=== PATIENT | male | born 1990 | race American Indian/Alaskan Native ===

== ENCOUNTER 2018-07-21 22:56 | Emergency (ER) | payer OTHER ==
[~2018-07-21] VITALS: Ht 165.1 cm; Wt 70.8 kg
[2018-07-21] MEDS ORDERED: ACCUNEB SO1.25 MG/1 (23:03)
[2018-07-21] MEDS ORDERED: VENTOLIN HFA 1818 GM INH (23:34)
[2018-07-21] MEDS ORDERED: DIPHENHIST50 MG PO (23:34)
[2018-07-21 23:49] VITALS: BP 112/57
== END 2018-07-21 23:50 | disposition home or self-care (01) ==
LOC: ER 22:56
DX: L42 Pityriasis rosea (principal); J45.909 Unspecified asthma, uncomplicated